=== PATIENT | female | born 2000 | race Hispanic/Latino ===

== ENCOUNTER 2024-12-20 16:55 | Emergency (ER) | payer SELFPAY ==
[2024-12-20] MEDS ORDERED: Famotidine/PF 20 mg/2ml Vial ONE (17:15)
[2024-12-20] MEDS ORDERED: diphenhydrAMINE 50 MG/ML VIAL ONE (17:15)
[2024-12-20] MEDS ORDERED: Ondansetron PF 4 MG/2 ML Vial ONE (17:26)
== END 2024-12-20 18:57 | disposition home or self-care (01) ==
LOC: CSHERS 16:55
DX: T78.2XXA Anaphylactic shock, unspecified, initial encounter (principal); L50.0 Allergic urticaria
CPT/HCPCS: 96372; 96374; 96375; J0169; J1200; J2919